=== PATIENT | female | born 2000 | race Caucasian/White ===

== ENCOUNTER 2020-11-22 23:24 | Emergency (ER) | payer BC ==
[~2020-11-22] VITALS: Ht 160 cm; Wt 77.1 kg
[2020-11-23 00:08] VITALS: BP_SYST 123
[2020-11-23 00:26] LABS: BILIRUBIN,URINE NEGATIVE (NEGATIVE); BLOOD, URINE 2+ (NEGATIVE); CLARITY/URINE CLOUDY (CLEAR); GLUCOSE,URINE NEGATIVE (NEGATIVE); KETONES,URINE NEGATIVE (NEGATIVE); LEUKOCYTE ESTERASE ,URINE 2+ (NEGATIVE); NITRITE, URINE NEGATIVE (NEGATIVE); PROTEIN URINE 1+ (NEGATIVE); UROBILINOGEN,URINE 0.2 (0.2-1.0)
[2020-11-23 00:28] LABS: COLOR,URINE YELLOW (YELLOW)
[2020-11-23 00:51] LABS: BACTERIA,URINE MODERATE /HPF (None Seen); RBC,URINE 20-50 /HPF (0-3); WBC,URINE 20-50 /HPF (0-3)
[2020-11-23] MEDS ORDERED: ONDANSETRON HCL 4 MG/2 ML VIAL ONE (00:53)
[2020-11-23 00:58] LABS: BASOPHILS # (AUTO) 0.1 K/uL (0.0-0.2); BASOPHILS % (AUTO) 0.5 % (0.0-2.0); EOSINOPHILS % (AUTO) 0.4 % (0.0-4.0); LYMPHOCYTES # (AUTO) 2.2 K/uL (1.0-5.5); LYMPHOCYTES % (AUTO) 17.2 % (20.5-51.5); MEAN CORPUSCULAR HEMOGLOBIN 31 pg (27-31); MEAN CORPUSCULAR HGB CONC 34 % (32-36); MEAN CORPUSCULAR VOLUME 90 fL (79.0-98.0); MONOCYTES # (AUTO) 0.7 K/uL (0.0-1.0); MONOCYTES % (AUTO) 5.3 % (1.7-9.3); NEUTROPHILS % (AUTO) 76.6 % (40.0-70.0); PLATELET COUNT (AUTO) 236 K/uL (130-430); RED BLOOD CELL COUNT(AUTO) 4.25 MIL/uL (4.2-6.2); RED CELL DISTRIBUTION WIDTH 12.7 % (9.0-15.0)
[2020-11-23] MEDS ORDERED: ONDANSETRON HCL 4 MG/2 ML VIAL IVP ONE (01:00)
[2020-11-23] MEDS ORDERED: NAPROXEN 250 MG TABLET PO ONE (01:00)
[2020-11-23] MEDS ORDERED: NAPROXEN 250 MG TABLET ONE (01:00)
[2020-11-23 01:08] LABS: CALCIUM 8.9 mg/dL (8.4-11.0); CREATININE 0.67 mg/dL (0.55-1.30); POTASSIUM 3.8 mmol/L (3.5-5.1)
[2020-11-23 01:14] LABS: ALBUMIN 3.7 g/dL (3.4-4.8); TOTAL BILIRUBIN 0.4 mg/dL (0.0-1.0)
[2020-11-23] MEDS ORDERED: NACL 0.9% 1,000 ML IV ONE (01:15)
[2020-11-23] MEDS ORDERED: KETOROLAC TROMETHAMINE 30 MG VIAL ONE (01:15)
[2020-11-23] MEDS ORDERED: KETOROLAC TROMETHAMINE 30 MG VIAL IVP ONE (01:15)
[2020-11-23] MEDS ORDERED: NAPR-686 PO (04:34)
[2020-11-23] MEDS ORDERED: PHE25 PO (04:34)
[2020-11-23] MEDS ORDERED: HYDR-3919 PO (04:34)
[2020-11-23 04:45] VITALS: BP_SYST 130
== END 2020-11-23 04:45 | disposition home or self-care (01) ==
LOC: SED 23:24
DX: K80.20 Calculus of gallbladder without cholecystitis without obstruction (principal); N39.0 Urinary tract infection, site not specified
CPT/HCPCS: 36415; 76700; 80053; 81000; 85025; 87086; 96361; 96374; 96375; 99284; J1885; J2405; J7030